=== PATIENT | female | born 1990 | race Caucasian/White ===

== ENCOUNTER 2017-12-17 14:52 | Emergency (ER) | payer MEDICAID ==
[~2017-12-17] VITALS: Ht 177.8 cm; Wt 83.9 kg
--- NOTE | 2017-12-17 15:05 | NUR ---
HEATH FROM HOME, DAD CALLED 911, BECAUSE HE WAS TRYING TO CALL HER AND HE DIDN'T HEAR ANYTHING FROM HER TODAY. PATIENT WAS INCOHERENT, CRYING AND EMOTIONAL UPON THE PMRT TEAM EVALUATION. PER PMRT TEAM, PATIENT DOESN'T MEET THE CRITERIA FOR 5150. PATIENT IS NOT SI/HI. SKIN IS WARM AND DRY. AWAITING MD FOR EVAL.
[2017-12-17] MEDS ORDERED: OLANZAPINE 10 MG VIAL IM ONE (15:29)
[2017-12-17] MEDS: OLANZAPINE 10 MG VIAL IM ONE (15:35)
[2017-12-17] MEDS: IV NS 0.9% 1,000 ML BAG IV ONE (15:35)
--- NOTE | 2017-12-17 15:55 | NUR ---
DAD'S CONTACT INFO: JUDITH ESCALANTE
--- NOTE | 2017-12-17 16:45 | NUR ---
CALLED SHAKA DESIR AND SHE SAID SHE WOULD BE HERE WITHIN THE HOUR
[2017-12-17 17:38] LABS: BASOPHILS % (AUTO) 0.4 % (0.0-2.0); EOSINOPHILS % (AUTO) 0.6 % (0.0-6.0); HEMATOCRIT 35 % (33-45); HEMOGLOBIN 11.5 g/dL (11.5-14.8); LYMPHOCYTES % (AUTO) 33.1 % (20.0-44.0); MEAN CORPUSCULAR HGB CONC 33 g/dl (31.0-36.0); MEAN CORPUSCULAR VOLUME 72 fL (82-100); MONOCYTES # (AUTO) 0.6 /CMM (0.1-1.30); MONOCYTES % (AUTO) 5.4 % (2.0-12.0); NEUTROPHILS # (AUTO) 7.3 /CMM (1.8-8.9); NEUTROPHILS % (AUTO) 60.5 % (43.0-81.0); PLATELET COUNT (AUTO) 481 /CMM (150-450); RDW COEFFICIENT OF VARIATION 13.9 (11.5-15.0); RED BLOOD CELL COUNT(AUTO) 4.84 MIL/uL (4.0-5.2)
[2017-12-17 17:50] LABS: CALCIUM, SERUM 8.9 mg/dL (8.5-10.1); CARBON DIOXIDE 23 mmol/L (21-32); CHLORIDE 107 mmol/L (98-107); CREATININE 0.7 mg/dL (0.6-1.3); GLUCOSE 94 mg/dL (74-106); POTASSIUM 3.8 mmol/L (3.5-5.1); SODIUM SERUM 140 mmol/L (136-145); UREA NITROGEN, BLOOD 7 mg/dL (7-18)
[2017-12-17 18:04] LABS: ALANINE AMINOTRANSFERASE 27 U/L (12-78); ALBUMIN 3.5 g/dL (3.4-5.0); ALKALINE PHOSPHATASE 59 U/L (46-116); ASPARTATE AMINOTRANSFERASE 22 U/L (15-37); BILIRUBIN,DIRECT 0.1 mg/dL (0.0-0.2); BILIRUBIN,TOTAL 0.5 mg/dL (0.2-1.0); TOTAL PROTEIN, SERUM 7.6 g/dL (6.4-8.2)
[2017-12-17 18:05] LABS: ACETAMINOPHEN < 2 ug/ml (10-30); ALCOHOL, BLOOD < 3 mg/dL (0-0); SALICYLATE 1.5 mg/dL (2.8-20.0)
[2017-12-17 18:14] LABS: APPEARANCE,URINE Clear (CLEAR); BILIRUBIN,URINE SMALL (NEGATIVE); BLOOD, URINE Large Ery/uL (NEGATIVE); COLOR,URINE Yellow (YELLOW); KETONES,URINE Trace (NEGATIVE); LEUKOCYTE ESTERASE ,URINE Small (NEGATIVE); NITRITE, URINE Positive (NEGATIVE); PH,URINE 8.5 (5.0-8.0); PROTEIN,URINE 100 mg/dl (NEGATIVE); UGLUCOSE Negative (NEGATIVE); UROBILINOGEN,URINE 0.2 EU/dL (0.2)
[2017-12-17 18:25] LABS: BACTERIA,URINE 4+ /HPF (None Seen); RBC,URINE 51-80 /HPF (0-2); SQUAMOUS EPITHELIAL CELL,UR Few /HPF (None Seen)
[2017-12-17 18:31] LABS: CREATINE KINASE, TOTAL 205 U/L (26-192)
--- NOTE | 2017-12-17 19:00 | NUR ---
REPORT GIVEN TO KANE DE LA CRUZ FOR [facility].
--- NOTE | 2017-12-17 19:04 | NUR ---
REPORT RECEIVED FROM KANE FOUNTAIN FOR [facility].
--- NOTE | 2017-12-17 19:07 | NUR ---
PT HAS 20G IV TO L HAND, STARTED BY DAY SHIFT.
--- NOTE | 2017-12-17 19:10 | NUR ---
SITTER AT BEDSIDE.
[2017-12-17] MEDS ORDERED: CEFTRIAXONE 1GM BAG (ER ONLY) 50 ML IV ONE (19:49)
[2017-12-17] MEDS: CEFTRIAXONE 1GM BAG (ER ONLY) 1 GM/50 ML PIGGYBACK IV ONE (19:59)
[2017-12-17] MEDS: IV NS 0.9% 1,000 ML IV ONE (20:31)
--- NOTE | 2017-12-17 21:05 | NUR ---
PT RESTING QUIETLY, SITTER REMAINS AT BEDSIDE. VSS. RN TO CONTINUE TO PROVIDE SAFETY/COMFORT MEASURES.
--- NOTE | 2017-12-18 01:53 | NUR ---
IV removed. Catheter intact and site benign. Pressure and 4x4 applied to site. No bleeding noted. Patient discharged to home in stable condition. Written and verbal after care instructions given. Patient verbalizes understanding of instruction. Patient ambulatory with a steady gait.
[2017-12-18 01:55] VITALS: BP 138/89
== END 2017-12-18 01:56 | disposition home or self-care (01) ==
LOC: ER 14:54
DX: F29 Unspecified psychosis not due to a substance or known physiological condition (principal); N39.0 Urinary tract infection, site not specified; F19.10 Other psychoactive substance abuse, uncomplicated; F31.9 Bipolar disorder, unspecified
CPT/HCPCS: 36415; 80048-TC; 80076-TC; 80305; 81000-TC; 82550-TC; 84703-TC; 85025-TC; 87086-TC; A4606; G0480; J0696; J3490; J7030; Z7610